=== PATIENT | female | born 1985 | race African-American/Black ===

== ENCOUNTER 2020-12-07 07:31 | Emergency (ER) | payer OTHER ==
[~2020-12-07] VITALS: Ht 170.2 cm; Wt 68.0 kg
[2020-12-07 07:38] VITALS: BP 116/71
[2020-12-07] MEDS ORDERED: GENT5DRO5 EACHEYE (08:09)
[2020-12-07] MEDS ORDERED: TOBR3.5O EACHEYE (08:09)
[2020-12-07] MEDS ORDERED: IBUP-2028 MT (08:10)
[2020-12-07] MEDS ORDERED: ACETAMINOPHEN 325MG TABLET PO ONE (08:15)
== END 2020-12-07 08:40 | disposition home or self-care (01) ==
LOC: ER 07:31
DX: H10.9 Unspecified conjunctivitis (principal)
CPT/HCPCS: 99283